=== PATIENT | female | born 1940 | race Caucasian/White ===

== ENCOUNTER 2018-09-25 08:19 | Day surgery (SDC) | payer OTHER ==
--- OUTSIDE RECORDS SUMMARY | 2018-09-25 08:21 | XMS REPORT ---
:1940 Author Organization eClinicalWorks Care Team Providers Name Role Phone Mitchell, Na Provider Role Unavailable Allergies, Adverse Reactions, Alerts Substance Reaction Event Type Sulfa Info Not Available Drug Allergy Problems Problem Type Condition Code Onset Dates Condition Status Assessment Other osteoporosis M81.8 Active Problem Family history of diabetes mellitus Z83.3 Active Assessment Renal insufficiency N28.9 Active Problem Hormone replacement therapy Z79.890 Active Assessment Hormone replacement therapy Z79.890 Active Problem Elevated blood pressure reading in R03.0 Active office without diagnosis of hypertension Problem Allergic rhinitis J30.9 Active Problem Hypertriglyceridemia E78.1 Active Problem Bronchiectasis without complication J47.9 Active Problem UTI (urinary tract infection) N39.0 Active Assessment Allergic rhinitis J30.9 Active Assessment Bronchiectasis without complication J47.9 Active Problem Abnormal mammogram R92.8 Active Assessment Gastro-esophageal reflux disease K21.9 Active without esophagitis Problem Encounter for screening mammogram Z12.31 Active for breast cancer Problem Renal insufficiency N28.9 Active Problem Microscopic polyangiitis M31.7 Active Problem Microscopic hematuria R31.29 Active Problem CKD (chronic kidney disease) stage N18.2 Active 2, GFR 60-89 ml/min Problem Other osteoporosis M81.8 Active Assessment Hypertriglyceridemia E78.1 Active Problem Dry mouth R68.2 Active Problem Gastro-esophageal reflux disease K21.9 Active without esophagitis Problem Dry eye syndrome H04.129 Active Problem Sjogren's syndrome M35.00 Active Medications Medication Code Code Instructions Start End Status Dosage System Date Date Prilosec [facility] 12094268936 20 MG Orally Active 1 capsule Once a day Fluticasone [facility] 49442285672 50MCG Active USE 2 Propionate INHALATIONS IN EACH NOSTRIL ONCE DAILY Flonase ND 04370107954 50 MCG/DOSE Active 1 spray in Nasally Once a each nostril day Aspirin ND 96329433841 325 MG Orally Active 1 tablet Once a day Premarin ND 44271936008 0.3 MG Orally Active 1 tablet one tablet daily Reclast [facility] 58710215236 5 MG/100ML Active not defined Intravenous Results No Known Results Summary Purpose eClinicalWorks Submission
--- OUTSIDE RECORDS SUMMARY | 2018-09-25 08:21 | XMS REPORT ---
:1940 Author Organization eClinicalWorks Care Team Providers Name Role Phone Mitchell, Na Provider Role Unavailable Allergies No Known Allergies Problems Problem Type Condition Code Onset Dates Condition Status Problem Elevated blood pressure reading in R03.0 Active office without diagnosis of hypertension Problem Allergic rhinitis J30.9 Active Problem Hypertriglyceridemia E78.1 Active Problem Bronchiectasis without complication J47.9 Active Problem UTI (urinary tract infection) N39.0 Active Problem Abnormal mammogram R92.8 Active Problem Encounter for screening mammogram Z12.31 Active for breast cancer Problem Renal insufficiency N28.9 Active Problem Microscopic polyangiitis M31.7 Active Problem Microscopic hematuria R31.29 Active Problem CKD (chronic kidney disease) stage N18.2 Active 2, GFR 60-89 ml/min Problem Other osteoporosis M81.8 Active Problem Dry mouth R68.2 Active Problem Gastro-esophageal reflux disease K21.9 Active without esophagitis Problem Dry eye syndrome H04.129 Active Problem Family history of diabetes mellitus Z83.3 Active Problem Sjogren's syndrome M35.00 Active Problem Hormone replacement therapy Z79.890 Active Medications No Known Medications Results No Known Results Summary Purpose eClinicalWorks Submission
--- OUTSIDE RECORDS SUMMARY | 2018-09-25 08:21 | XMS REPORT ---
[...] Start End Status Dosage System Date Date Keflex [facility] 40007184716 500 MG Orally Inactive 1 capsule every 12 hrs Fluticasone [facility] 81939891135 50MCG Active USE 2 Propionate INHALATIONS IN EACH NOSTRIL ONCE DAILY Flonase ND 37449306891 50 MCG/DOSE Active 1 spray in Nasally Once a each nostril day Reclast ND 99761585551 5 MG/100ML Active not defined Intravenous Prilosec [facility] 75874289096 20 MG Orally Active 1 capsule Once a day Premarin [facility] 75665214081 0.3 MG Orally Active 1 tablet one tablet daily Aspirin [facility] 21882889085 325 MG Orally Active 1 tablet Once a day Results No Known Results Summary Purpose eClinicalWorks Submission
--- OUTSIDE RECORDS SUMMARY | 2018-09-25 08:21 | XMS REPORT ---
[...] ml/min Problem Other osteoporosis M81.8 Active Assessment Abnormal mammogram R92.8 Active Problem Dry mouth R68.2 Active Problem Gastro-esophageal reflux disease K21.9 Active without esophagitis Problem Dry eye syndrome H04.129 Active Problem Family history of diabetes mellitus Z83.3 Active Problem Sjogren's syndrome M35.00 Active Problem Hormone replacement therapy Z79.890 Active Medications No Known Medications Results No Known Results Summary Purpose eClinicalWorks Submission
--- OUTSIDE RECORDS SUMMARY | 2018-09-25 08:22 | XMS REPORT ---
[...] ml/min Problem Other osteoporosis M81.8 Active Assessment Encounter for screening mammogram Z12.31 Active for breast cancer Problem Dry mouth R68.2 Active Problem Gastro-esophageal reflux disease K21.9 Active without esophagitis Problem Dry eye syndrome H04.129 Active Problem Family history of diabetes mellitus Z83.3 Active Problem Sjogren's syndrome M35.00 Active Problem Hormone replacement therapy Z79.890 Active Medications No Known Medications Results No Known Results Summary Purpose eClinicalWorks Submission
--- OUTSIDE RECORDS SUMMARY | 2018-09-25 08:22 | XMS REPORT ---
[...] UTI (urinary tract infection) N39.0 Active Assessment Hypertriglyceridemia E78.1 Active Assessment Allergic rhinitis J30.9 Active Problem Abnormal mammogram R92.8 Active Assessment Gastro-esophageal reflux disease K21.9 Active without esophagitis Problem Encounter for screening mammogram Z12.31 Active for breast cancer Problem Renal insufficiency N28.9 Active Problem Microscopic polyangiitis M31.7 Active Problem Microscopic hematuria R31.29 Active Problem CKD (chronic kidney disease) stage N18.2 Active 2, GFR 60-89 ml/min Problem Other osteoporosis M81.8 Active Assessment Encounter for general adult medical Z00.00 Active examination without abnormal findings Problem Dry mouth R68.2 Active Problem Gastro-esophageal reflux disease K21.9 Active without esophagitis Problem Dry eye syndrome H04.129 Active Problem Sjogren's syndrome M35.00 Active Medications Medication Code Code Instructions Start End Status Dosage System Date Date Reclast [facility][NOTE 3] 02861755353 5 MG/100ML Active not defined Intravenous Flonase [facility][NOTE 3] 96763305684 50 MCG/DOSE Active 1 spray in Nasally Once a each nostril day Fluticasone ND 82370898113 50MCG Active USE 2 Propionate INHALATIONS IN EACH NOSTRIL ONCE DAILY Premarin ND 08615094857 0.3 MG Orally Active 1 tablet one tablet daily Aspirin ND 17742634982 325 MG Orally Active 1 tablet Once a day Prilosec [facility][NOTE 3] 27750923787 20 MG Orally Active 1 capsule Once a day Results No Known Results Summary Purpose eClinicalWorks Submission
[2018-09-25] MEDS ORDERED: Zoledronic Acid/Mannitol/Water 5 MG/100 ML INFUS.BOT IV ONE (09:00)
[2018-09-25 09:13] VITALS: BP 154/64; TEMP 97.5; O2SAT 98; BMI 24.7
== END 2018-09-25 09:28 | disposition home or self-care (01) ==
LOC: DS 08:19
PROVIDERS: ATTEND Family Medicine
DX: M81.8 Other osteoporosis without current pathological fracture (principal)
CPT/HCPCS: 96365; J3489

== ENCOUNTER → 2019-09-27 | Day surgery (SDC) | payer OTHER ==
[~2019-09-27] MED LIST: Zoledronic Acid/Mannitol/Water 5 MG/100 ML INFUS.BOT IV ONE
--- OUTSIDE RECORDS SUMMARY | 2019-09-27 08:06 | XMS REPORT | Continuity of Care Document ---
:1940 Author Organization [facility] t Address [address] [place] [address] Care Team Providers Name Role Phone Elena Myers OD Attending Clinician Problems Condition Condition Condition Status Onset Resolution Last Treating Co mments Source Name Details Category Date Date Treatment Clinician Date Elevated Elevated Problem [facility] pressure pressure Memori a reading in reading in l office office Outpati without without ent diagnosis diagnosis Clin ics of of hypertensi hypertensi on on Allergic Allergic Diagnosis Active [facility] rhinitis rhinitis [facility] Hypertrigl Hypertrigl Diagnosis Active [facility] yceridemia yceridemia [facility] - [facility] Out[facility] ent Clinics Bronchiect Bronchiect Problem Active [facility] asis asis [facility] - without without Memoria complicati complicati l on on Outpati ent Clinics UTI UTI Problem Active [facility] (urinary (urinary [facility] - tract tract Memoria infection) infection) l Outpati ent Clinics Abnormal Abnormal Problem [facility] mamm[facility] mamm[facility] Encounter Encounter Problem Active [facility] for for [facility] - screening screening B[facility] sarah mammogram mammogram l for breast for breast Ou tpati cancer cancer ent Clinics Renal Renal Problem Active [facility] insufficie insufficie Leydi kes - ncy ncy [facility]oria l Outpati ent Clinics Microscopi Microscopi Problem Active [facility] - polyangiit polyangiit Me moria is is l Outpati ent Clinics Microscopi Microscopi Problem Active [facility] - hematuria hematuria Bg sarah l Outpati ent Clinics CKD CKD Problem Active [facility] (chronic (chronic [facility] - kidney kidney Memoria disease) disease) l stage 2, stage 2, Outpat i GFR 60-89 GFR 60-89 ent ml/min ml/min Clinics Other Other Problem Active [facility] osteoporos osteoporos Leydi kes - is is Memoria l [facility] ent Clinics Dry mouth Dry mouth Problem Active [facility] Gastro-eso Gastro-eso Problem Active [facility] phageal phageal [facility] - reflux reflux [facility] disease disease [facility]ics Dry eye Dry eye Problem Active [facility] syndrome syndrome [facility] Family Family Problem Active [facility] history of history of Leydi kes - diabetes diabetes Memori a mellitus mellitus l [facility]ics Sjogren's Sjogren's Problem Active [facility] syndrome syndrome [facility] Hormone Hormone Problem Active [facility] replacemen replacemen Leydi kes - t therapy t therapy Bg sarah l [facility]ics Screening Screening Diagnosis Active [facility] for for [facility] - osteoporos osteoporos Me moria is is l [facility]ics Screening Screening Diagnosis Active [facility] for for [facility] - malignant malignant Bg sarah neoplasm neoplasm l of breast of breast Outp at ent Clinics Allergies, Adverse Reactions, Alerts Allergy Allergy Status Severity Reaction(s) Onset Inactive Treating Comm ents Source Name Type Date Date Clinician Sulfa Adverse Active Info Not [facility] Reaction Available [facility] Medications Ordered Filled Start Stop Current Ordering Indication Dosage Frequency Signature Comments Components Source Medication Medication Date Date Medication? Clinician (SIG) Name Name Fluticasone Fluticasone Yes Na Mitchell USE [address] [facility] Propionate Propionate INHALATION [facility] - S IN EACH Memoria NOSTRIL l ONCE DAILY [facility] Flonase Flonase Yes Na Mitchell [address] [facility] each [facility] - nostril Memoria l [facility] Reclast Reclast Yes Na Mitchell not [facility] defined [facility] Prilosec Prilosec Yes Na Mitchell [address] [facility] Premarin Premarin Yes Na Mitchell [address] [facility] Aspirin Aspirin Yes Na Mitchell [address] [facility] Premarin Premarin Yes Na Mitchell TAKE [address] TABLET [facility] - DAILY [facility] l Outpati ent Clinics Fluticasone Fluticasone Yes Na Mitchell USE [address] [facility] [facility] Propionate Propionate SPRAYS IN [facility] - EACH Memoria NOSTRIL l ONCE DAILY Outpati ent Clinics Procedures This patient has no known procedures. Encounters Start End Encounter Admission Attending Care Care Encounter Source Date/Time Date/Time Type Type Clinicians Facility Department ID 2019-08-19 2019-08-19 Outpatient Ofelia Dye [id number] [facility] 08:00:00 08:00:00 [employer] [facility] Medicine Outpati ent Clinics 2019-07-28 2019-07-28 Outpatient Ofelia Gilbertt [id number] 14:02:00 14:02:00 [employer] [facility] Medicine Outpati ent Clinics 2019-04-20 2019-04-20 Outpatient Ofelia Dye [id number] [facility] 08:00:00 08:00:00 t [employer] [facility] Medicine Outpati ent Clinics 2019-04-13 2019-04-13 [place] [id number] 13:42:22 15:37:56 Visit [facility] AMBULATOR [id number] Elena Y [id number] 2019-03-22 2019-03-22 [place] [id number] 14:10:38 15:17:05 Visit [place] AMBULATOR [id number] Elena Y [id number] 2018-12-22 2018-12-22 Outpatient Ofelia Gilbertt [id number] [facility] 13:20:00 13:20:00 t [employer] [facility] Medicine Outpati ent Clinics 2018-09-07 2018-09-07 Outpatient Ofelia Gilbertt [id number] 11:42:00 11:42:00 t [employer] [facility] Outpati ent Clinics 2018-06-04 2018-06-04 [facility] [id number] [facility] 08:20:00 08:20:00 t [employer] [facility] Medicine Outpati ent Clinics 2018-02-02 2018-02-02 [facility] [id number] 08:15:00 08:15:00 t [employer] [facility] Medicine Outpati ent Clinics 2017-10-17 2017-10-17 [facility] [id number] 08:05:00 08:05:00 t [employer] [facility] Medicine Outpati ent Clinics 2017-10-04 2017-10-04 [facility] [id number] 00:21:00 00:21:00 t [employer] [facility] Medicine Outpati ent Clinics 2017-10-02 2017-10-02 [facility] [id number] [facility] 08:15:00 08:15:00 t [employer] [facility] Medicine Outpati ent Clinics Results This patient has no known results.
--- OUTSIDE RECORDS SUMMARY | 2019-09-27 08:07 | XMS REPORT ---
:1940 Author Organization eClinicalWorks Care Team Providers Name Role Phone Mitchell, Na Provider Role Unavailable Allergies No Known Allergies Problems Problem Type Condition Code Onset Dates Condition Statu s Assessment Screening for osteoporosis Z13.820 A ctive Assessment Screening for malignant neoplasm of Z12.39 Active breast Problem Family history of diabetes mellitus Z83.3 Active Assessment Hormone replacement therapy Z79.890 Active Problem Hormone replacement therapy Z79.890 Active Assessment Renal insufficiency N28.9 Active Problem Elevated blood pressure reading in R03.0 Active office without diagnosis of hypertension Problem Allergic rhinitis J30.9 Active Problem Hypertriglyceridemia E78.1 Active Problem Bronchiectasis without complication J47.9 Active Problem UTI (urinary tract infection) N39.0 Active Assessment Other osteoporosis M81.8 Active Assessment Allergic rhinitis J30.9 Active Problem Abnormal mammogram R92.8 Active Assessment Gastro-esophageal reflux disease K21.9 Active without esophagitis Problem Encounter for screening mammogram Z12.31 Active for breast cancer Problem Renal insufficiency N28.9 Active Problem Microscopic polyangiitis M31.7 Act nataliia Problem Microscopic hematuria R31.29 Active Problem CKD (chronic kidney disease) stage N18.2 Active 2, GFR 60-89 ml/min Problem Other osteoporosis M81.8 Active Assessment Hypertriglyceridemia E78.1 Active Problem Dry mouth R68.2 Active Problem Gastro-esophageal reflux disease K21.9 Active without esophagitis Problem Dry eye syndrome H04.129 Active Problem Sjogren's syndrome M35.00 Active Medications Medication Code Code Instructions Start End Status Dosage System Date Date Aspirin ND 93533200424 325 MG Orally Active 1 tabl et Once a day Prilosec [facility] 99367726441 20 MG Orally Active 1 caps ule Once a day Flonase ND 79357792682 50 MCG/DOSE Active 1 spray in Nasally Once a each nost ril day Premarin ND 98982188886 0.3 MG Active TAKE 1 TABL ET DAILY Reclast ND 30380950471 5 MG/100ML Active not defin ed Intravenous Fluticasone [facility] 88458029369 50MCG Active USE 2 Propionate INHALATIONS IN EACH NOSTRIL ONCE DAILY Premarin [facility] 82246238530 0.3 MG Orally Active 1 tab let one tablet daily Fluticasone [facility] 11231437777 50 MCG/ACT Active USE 2 SPRAYS Propionate IN EACH NOSTRIL ONCE DAILY Results No Known Results Summary Purpose eClinicalWorks Submission
--- OUTSIDE RECORDS SUMMARY | 2019-09-27 08:07 | XMS REPORT ---
:1940 Author Organization eClinicalWorks Care Team Providers Name Role Phone Mitchell, Na Provider Role Unavailable Allergies No Known Allergies Problems Problem Type Condition Code Onset Dates Condition Statu s Problem Elevated blood pressure reading in R03.0 [...]
[2019-09-27 09:34] VITALS: BP 142/60; TEMP 98; O2SAT 97
[2019-09-27 09:35] VITALS: BMI 24.7
== END ==
LOC: DS 08:03
PROVIDERS: ATTEND Family Medicine
DX: M81.8 Other osteoporosis without current pathological fracture (principal)
CPT/HCPCS: 96365; J3489

== ENCOUNTER 2020-10-06 08:35 | Day surgery (SDC) | payer OTHER ==
[2020-10-06] MEDS ORDERED: Zoledronic Acid/Mannitol/Water 5 MG/100 ML INFUS.BOT IV ONE (09:00)
[2020-10-06 09:59] VITALS: BP 142/60; TEMP 98; O2SAT 94; BMI 21.2
== END 2020-10-06 09:46 | disposition home or self-care (01) ==
LOC: DS 08:35
PROVIDERS: ATTEND Family Medicine
DX: M81.8 Other osteoporosis without current pathological fracture (principal)
CPT/HCPCS: 96365; J3489

== ENCOUNTER 2021-02-27 09:25 | Emergency (ER) | payer OTHER ==
--- OUTSIDE RECORDS SUMMARY | 2021-02-27 09:40 | XMS REPORT | Continuity of Care Document ---
:1940 Author Organization [facility] t Address [address] [place] [address] Care Team Providers Name Role Phone ASHLEY Attending Clinician Unavailable Abuhmahin OD, Elena Attending Clinician Payers Payer Name Policy Type Policy Number Effective Date Expiration Date [facility] MEDICARE PLAN PPO - [id number] [facility] [facility] MEDICARE [id number] [facility] MEDIC[facility] [id number] [facility] Problems Condition Condition Condition Status Onset Resolution Last Treating Co mments Source Name Details Category Date Date Treatment Clinician Date Dry eye Dry eye Disease Active [facility] 815 College 00:00: of 00 Medicin e Keratoconj Keratoconj Disease Active [facility] unctivitis unctivitis 10-08 Co llege sicca due sicca due 00:00: of to to 00 Medicin decreased decreased e tear tear production production Allergies, Adverse Reactions, Alerts Allergy Allergy Status Severity Reaction(s) Onset Inactive Treating Comm ents Source Name Type Date Date Clinician Sulfa Propensi Active 2018-[address] [facility] Antibiot ty to 03-14 [place] ics adverse 00:00: of reaction 00 Medicin s to e drug Sulfa Adverse Active Info Not [facility] Reaction Available [facility] Social History Social Habit Start Date Stop Date Quantity Comments Source Sex Assigned At [facility] llege of Medicine Tobacco use and 2019-02-25 2019-02-25 Never [address] [facility] Co llege of exposure 00:00:00 00:00:00 Medicine Alcohol intake 2019-02-25 2019-02-[address] [facility] Col lege of 00:00:00 00:00:00 Medicine Smoking Status Start Date Stop Date Source Never smoker [facility] o f Medicine Medications Ordered Filled Start Stop Current Ordering Indication Dosage Frequency Signature Comments Components Source Medication Medication Date Date Medication? Clinician (SIG) Name Name [place]-3 2018-02 Yes Take by [facility] Fatty Acids 1-19 mouth. Colleg e (FISH OIL) 19:13: of 1000 MG 31 Medicin CAPS e Polyvinyl 2018-02 Yes Apply to [place] juan antonio Alcohol-Pov 1-19 eye. [place] idone 19:13: of (REFRESH 31 Medicin OP) e [place]-3 2018-02 Yes Take by [facility] Fatty Acids 1-19 mouth. Colleg e (FISH OIL) 19:13: of 1000 MG 31 Medicin CAPS e Polyvinyl 2018-02 Yes Apply to [place] juan antonio Alcohol-Pov 1-19 eye. [place] idone 19:13: of (REFRESH 31 Medicin OP) e [place]-3 2018-02 Yes Take by [facility] Fatty Acids 1-19 mouth. Colleg e (FISH OIL) 19:13: of 1000 MG 31 Medicin CAPS e Polyvinyl 2018-02 Yes Apply to [place] juan antonio Alcohol-Pov 1-19 eye. [place] idone 19:13: of (REFRESH 31 Medicin OP) e XIIDRA 5 % 2018-02 Yes INSTILL 1 [facility] SOLN 1-01 DROP INTO College 00:00: EACH EYE of 00 TWICE Medicin DAILY e XIIDRA 5 % 2018-02 Yes INSTILL 1 [facility] SOLN 1-01 DROP INTO College 00:00: EACH EYE of 00 TWICE Medicin DAILY e XIIDRA 5 % 2018-02 Yes INSTILL 1 [facility] SOLN 1-01 DROP INTO College 00:00: EACH EYE of 00 TWICE Medicin DAILY e Dorzolamide Yes INSTILL 1 [facility] HCl-Timolol 8-30 DROP INTO Col lege Mal PF 00:00: EACH EYE of 2-0.5 % 00 TWICE Medicin SOLN DAILY e Dorzolamide Yes INSTILL 1 [facility] HCl-Timolol 8-30 DROP INTO Col lege Mal PF 00:00: EACH EYE of 2-0.5 % 00 TWICE Medicin SOLN DAILY e Dorzolamide 2018-0 Yes INSTILL 1 [facility] HCl-Timolol 8-30 DROP INTO Col lege Mal PF 00:00: EACH EYE of 2-0.5 % 00 TWICE Medicin SOLN DAILY e ondansetron 2016-02 Yes Q6H PRN [place] juan antonio (ZOFRAN-ODT 2-08 For Nausea Co llege ) 4 mg 00:00: / Vomiting of disintegrat 00 Medicin ing tablet e tramadol 2016-02 Yes Q6H PRN [facility] (ULTRAM) 50 2-08 For Pain Anjana ege MG tablet 00:00: of 00 Medicin e ondansetron 2016-02 Yes Q6H PRN [place] juan antonio (ZOFRAN-ODT 2-08 For Nausea Co llege ) 4 mg 00:00: / Vomiting of disintegrat 00 Medicin ing tablet e tramadol 2016-02 Yes Q6H PRN [facility] (ULTRAM) 50 2-08 For Pain Anjana ege MG tablet 00:00: of 00 Medicin e ondansetron 2016-02 Yes Q6H PRN [place] juan antonio (ZOFRAN-ODT 2-08 For Nausea Co llege ) 4 mg 00:00: / Vomiting of disintegrat 00 Medicin ing tablet e tramadol 2016-02 Yes Q6H PRN [facility] (ULTRAM) 50 2-08 For Pain Anjana ege MG tablet 00:00: of 00 Medicin e doxycycline Yes [id number] 20mg Take 1 Tab Jay (PERIOSTAT) 8-15 by mouth Anjana ege 20 MG 00:00: two times of tablet 00 daily. Medicin e doxycycline Yes [id number] 20mg Take [address] [facility] (PERIOSTAT) 8-15 by mouth Anjana ege 20 MG 00:00: two times of tablet 00 daily. Medicin e doxycycline Yes [id number] 20mg Take [address] [facility] (PERIOSTAT) 8-15 by mouth Anjana ege 20 MG 00:00: two times of tablet 00 daily. Medicin e Fluticasone Fluticasone Yes [place] USE [address] [facility] Propionate Propionate INHALATION [facility] Flonase Flonase Yes Na [place] [address] [facility] Reclast Reclast Yes Na [facility] not [facility] defined [facility] Prilosec Prilosec Yes Na [facility] [address] [facility] Premarin Premarin Yes Na Mitchell [address] [facility] Aspirin Aspirin Yes Na [place] [...] Procedures This patient has no known procedures. Plan of Care Planned Activity Planned Date Details Comments Source Future Scheduled Test MEDICARE AWV (Initial) [facility] [code = MEDICARE AWV Medicin e (Initial)] Future Scheduled Test FLU VACCINE > 6 MONTHS [facility] [code = FLU VACCINE > 6 Medi cine MONTHS] Future Scheduled Test MEDICARE AWV [code = [employer] MEDICARE AWV] Medicine Future Scheduled Test TETANUS SHOT (ADULT) [facility] [code = TETANUS SHOT Medicin e (ADULT)] Future Scheduled Test FALL SCREEN [code = [facility] FALL SCREEN] Medicine Future Scheduled Test OSTEOPOROSIS SCREENING [facility] [code = OSTEOPOROSIS Medicin e SCREENING] Future Scheduled Test PNEUMOVAX >=65 (PPSV23) [facility] [code = PNEUMOVAX >=65 Medic ine (PPSV23)] Future Scheduled Test PREVNAR >= 65 (PCV13) [facility] [code = PREVNAR >= 65 Medici ne (PCV13)] Future Scheduled Test MEDICARE AWV (Initial) [facility] [code = MEDICARE AWV Medicin e (Initial)] Future Scheduled Test FLU VACCINE > 6 MONTHS [facility] [code = FLU VACCINE > 6 Medi cine MONTHS] Future Scheduled Test TETANUS SHOT (ADULT) [facility] [code = TETANUS SHOT Medicin e (ADULT)] Future Scheduled Test FALL SCREEN [code = [facility] FALL SCREEN] Medicine Future Scheduled Test OSTEOPOROSIS SCREENING [facility] [code = OSTEOPOROSIS Medicin e SCREENING] Future Scheduled Test PNEUMOVAX >=65 (PPSV23) [facility] [code = PNEUMOVAX >=65 Medic ine (PPSV23)] Future Scheduled Test PREVNAR >= 65 (PCV13) [facility] [code = PREVNAR >= 65 Medici ne (PCV13)] Future Scheduled Test MEDICARE AWV (Initial) [facility] [code = MEDICARE AWV Medicin e (Initial)] Future Scheduled Test FLU VACCINE > 6 MONTHS [facility] [code = FLU VACCINE > 6 Medi cine MONTHS] Future Scheduled Test TETANUS SHOT (ADULT) [facility] [code = TETANUS SHOT Medicin e (ADULT)] Future Scheduled Test ZOSTER VACCINE (1 of 2) [facility] [code = ZOSTER VACCINE Medic ine (1 of 2)] Future Scheduled Test FALL SCREEN [code = [facility] FALL SCREEN] Medicine Future Scheduled Test OSTEOPOROSIS SCREENING [facility] [code = OSTEOPOROSIS Medicin e SCREENING] Future Scheduled Test PNEUMOVAX >=65 (PPSV23) [facility] [code = PNEUMOVAX >=65 Medic ine (PPSV23)] Encounters Start End Encounter Admission Attending Care Care Encounter Source Date/Time Date/Time Type Type Clinicians Facility Department ID 2020-11-24 2020-11-24 Outpatient GARCIA RAMIREZ [facility] [id number] [facility] 13:40:35 14:25:43 KELSI Zambrano e of Medicin e 2020-09-29 2020-09-29 Outpatient [facility] [id number] NIKI Gaspar 00:00:00 00:00:00 [facility] 2020-09-07 2020-09-07 [facility] [id number] NIKI Gaspar 00:00:00 00:00:00 [facility] 2020-08-30 2020-08-30 [facility] [id number] NIKI Gaspar 00:00:00 00:00:00 [facility] 2020-04-28 2020-04-28 Outpatient [facility] [id number] NIKI Gaspar 00:00:00 00:00:00 [facility] 2020-01-28 2020-01-28 Outpatient [facility] [id number] [facility]00 [facility] 2019-12-30 2019-12-30 [facility] [id number] [facility]00 [facility] 2019-10-31 2019-10-31 [facility] [id number] 10:37:00 10:37:00 [place] [employer] Being [employer]ched s - [facility] 2019-10-12 2019-10-12 Office Abarb, [facility] [id number] 10:16:39 11:08:05 Visit [place] AMBULATOR [id number] Elena Y [id number] [facility] 2019-10-12 2019-10-12 [facility] [id number] [facility] 10:16:39 11:08:05 Visit Victoria AMBULATOR [id number] [place] Elena Y [id number] of [id number] Medi nati 300 e 2019-08-19 2019-08-19 [facility] [id number] 08:00:00 08:00:00 [facility] Watched [facility] - [facility] 2019-07-28 2019-07-28 [facility] [id number] 14:02:00 14:02:00 [place] [employer] Stop Being Watched s - [facility] 2019-04-20 2019-04-20 [facility] [id number] 08:00:00 08:00:00 [place] [employer] Stop Being Watched s [facility] 2019-04-13 2019-04-13 Office Abarb, [facility] [id number] 13:42:22 15:37:56 Visit [place] AMBULATOR [id number] Elena Y [id number] 2019-04-13 2019-04-13 Office Abuharb, BCM [id number] [facility] 13:42:22 15:37:56 Visit [place] AMBULATOR [id number] College Elena Y [id number] of [id number] [facility] nati 300 e 2019-03-22 2019-03-22 Office Abuharb, BCM [id number] 14:10:38 15:17:05 Visit [place] AMBULATOR [id number] Elena Y [id number] 2019-03-22 2019-03-22 Office Abuharb, BCM [id number] [facility] 14:10:38 15:17:05 Visit [place] AMBULATOR [id number] College Elena Y [id number] of [id number] [facility] 300 e 2018-12-22 2018-12-22 [facility] [id number] 13:20:00 13:20:00 [place] [address] [facility] Medicine Outpati ent Clinics 2018-09-07 2018-09-07 [facility] [id number] 11:42:00 11:42:[address] [place] [address] [facility] - [facility] Medicine Outpati ent Clinics 2018-06-04 2018-06-04 [facility] [id number] [facility] [address] 08:20:00 08:20:00 [place] [address] [facility] - [facility] Medicine Outpati ent Clinics 2018-02-02 2018-02-02 [facility] [id number] 08:15:00 08:15:00 [place] [address] [facility] - [facility] Medicine Outpati ent Clinics 2017-10-17 2017-10-17 [facility] [id number] 08:05:00 08:05:00 [place] [address] [facility] - Drive [facility] Medicine l Medicine Outpati ent Clinics 2017-10-04 2017-10-04 [facility] [id number] 00:21:00 00:21:00 [facility] [place] ent [facility] 2017-10-02 2017-10-02 Outpatient [facility] [place] [id number] [facility] [address] 08:15:00 08:15:00 t [facility] ent Clinics Results This patient has no known results.
[2021-02-27] MEDS ORDERED: LEVALBUTEROL 1.25 MG/3 ML NEB ONE (10:04)
[2021-02-27] MEDS ORDERED: METHYLPREDNISOLONE 125 MG INJ ONE (10:04)
--- NOTE | 2021-02-27 10:49 | RAD REPORT ---
EXAM DESCRIPTION: Eduardo Single View02/27/2021 10:19 am CLINICAL HISTORY: Shortness of breath COMPARISON: 2018 FINDINGS: Lungs are hyperaerated. Chronic left basilar lung opacities noted. Old rib fractures seen. The lungs appear clear of acute infiltrate. The heart is normal size IMPRESSION: No acute abnormalities displayed
[2021-02-27 10:58] LABS: Absolute Lymphocytes (CBC) 1.2 K/uL (0.7-4.9); Hematocrit 38.2 % (36.0-45.0); Lymphocytes % 7.5 % (15.3-44.8); RBC Red Blood Cell Count 4.39 M/uL (3.86-4.86)
[2021-02-27 11:03] LABS: Protime INR 1.12
[2021-02-27 11:19] LABS: BUN Blood Urea Nitrogen 14 mg/dL (7-18); Bicarbonate 26 mmol/L (21-32); Glucose Level 114 mg/dL (74-106); NT PRO-BNP 876 pg/mL (<450); Potassium 3.3 mmol/L (3.5-5.1); Sodium Level 138 mmol/L (136-145); Troponin (Emerg Dept Use Only) < 0.02 ng/mL (0.0-0.045)
[2021-02-27 12:23] LABS: Blood Morphology Comment NOT SEEN (NOT SEEN); Platelet Estimate ADEQ; White Blood Cell Scan OK (OK)
--- NOTE | 2021-02-27 12:25 | RAD REPORT ---
EXAM DESCRIPTION: CT - Chest For Pe Angio - 02/27/2021 12:11 pm CLINICAL HISTORY: Chest pain COMPARISON: 2017 TECHNIQUE: Dynamically enhanced axial 3 mm thick images of the chest were obtained during administra tion of <100> mL Isovue 370 IV contrast. Coronal and oblique reconstruction images were generated and reviewed. Exam utilizes a protocol for optimal evaluation of pulmonary arterial tree. Maximum intensity projections 3D imaging was utilized All CT scans are performed using dose optimization technique as appropriate and may include automated exposure control or mA/KV adjustment according to patient size. FINDINGS: A pulmonary embolus is not seen. A thoracic aortic aneurysm is not noted. A pleural effusion is not seen. A pericardial effusion is not seen. The lungs are hyperaerated. Bilateral areas of scarring within the lungs noted. In addition there are mild tree-in-bud opacities within the lungs bilaterally. Mild additional left l su opacities Mild hilar lymphadenopathy Hepatic cyst IMPRESSION: Negative for a pulmonary embolism. COPD Mild bilateral tree-in-bud opacities may indicate an atypical infection. Mild additional left lung opacities probably infectious less likely neoplastic. Followup CT chest in 2 months is recommended for re-evaluation .
[2021-02-27 12:44] LABS: SARS-COV-2 RT PCR POSITIVE (NEGATIVE)
--- NOTE | 2021-02-27 13:59 | ER ---
Nurse's Notes [facility] Name: Bridget Zaidi Age: 80 yrs Sex: Female : 1940 Arrival Date: 02/27/2021 Time: 09:28 Bed 10 Private MD: Diagnosis: Pneumonia due to SARS-associated coronavirus Presentation: 02/27 09:55 Chief complaint: Patient states: Cough, congestion for 1 week. Pain with breathing for ll1 3 days. No fever. Coronavirus screen: Vaccine status: Patient reports receiving the 2nd dose of the covid vaccine. Client denies travel out of the [place] in the last 14 days. Client presents with at least one sign or symptom that may indicate coronavirus-19. Standard/surgical mask placed on the client. Ebola Screen: Patient denies travel to an Ebola-affected area in the 21 days before illness onset. 09:55 Method Of Arrival: Ambulatory ll1 09:59 Initial Sepsis Screen: Does the patient meet any 2 criteria? No. Patient's initial jd3 sepsis screen is negative. Does the patient have a suspected source of infection? No. Patient's initial sepsis screen is negative. Risk Assessment: Do you want to hurt yourself or someone else? Patient reports no desire to harm self or others. Onset of symptoms was February 27, 2021. 09:59 Acuity: ETHAN 3 jd3 Historical: - Allergies: 09:54 Sulfa (Sulfonamide Antibiotics); ll1 - PMHx: 09:54 Hypertensive disorder; COPD; ll1 - PSHx: 09:54 Tonsillectomy; hysterectomy; ll1 - Immunization history:: Client reports receiving the 2nd dose of the Covid vaccine. - Social history:: Smoking status: Patient denies any tobacco usage or history of. Patient uses. - Family history:: not pertinent. - Hospitalizations: : No recent hospitalization is reported. Screenin:57 Abuse screen: Denies threats or abuse. Nutritional screening: No deficits noted. jd3 Tuberculosis screening: No symptoms or risk factors identified. Fall Risk Ambulatory Aid- None/Bed Rest/Nurse Assist (0 pts). Gait- Normal/Bed Rest/Wheelchair (0 pts) Mental Status- Oriented to own ability (0 pts). Total Hays Fall Scale indicates No Risk (0-24 pts). Assessment: 09:58 General: Appears in no apparent distress. comfortable, Behavior is calm, cooperative, jd3 appropriate for age. Pain: Complains of pain in chest Pain does not radiate. Pain began gradually. Neuro: Level of Consciousness is awake, alert, obeys commands, Oriented to person, place, time, situation. Cardiovascular: Reports chest pain, Capillary refill < 3 seconds Patient's skin is warm and dry. Respiratory: Reports shortness of breath on exertion cough that is persistent Airway is patent Respiratory effort is even, unlabored, Respiratory pattern is regular, symmetrical. GI: No signs and/or symptoms were reported involving the gastrointestinal system. : No signs and/or symptoms were reported regarding the genitourinary system. EENT: No signs and/or symptoms were reported regarding the EENT system. Derm: Skin is intact, Skin is dry, Skin is normal, Skin temperature is warm. Musculoskeletal: Circulation, motion, and sensation intact. Range of motion: intact in all extremities. 11:16 Reassessment: Patient appears in no apparent distress at this time. No changes from jd3 previously documented assessment. Patient and/or family updated on plan of care and expected duration. Pain level reassessed. Patient is alert, oriented x 3, equal unlabored respirations, skin warm/dry/pink. 12:40 Reassessment: Patient appears in no apparent distress at this time. No changes from jd3 previously documented assessment. Patient and/or family updated on plan of care and expected duration. Pain level reassessed. Patient is alert, oriented x 3, equal unlabored respirations, skin warm/dry/pink. 14:31 Reassessment: Patient appears in no apparent distress at this time. Patient and/or jd3 family updated on plan of care and expected duration. Pain level reassessed. Patient is alert, oriented x 3, equal unlabored respirations, skin warm/dry/pink. even and steady gait upon discharge. no reports of shortness of breath or discomfort. Patient denies pain at this time. Patient states feeling better. Patient states symptoms have improved. Vital Signs: 09:55 BP 135 / 76; Pulse 87; Resp 17; Temp 98.0; Pulse Ox 92% on R/A; Weight 54.43 kg; Height ll1 5 ft. 3 in. (160.02 cm); Pain 5/10; 11:16 Pulse 85; Resp 17 S; Pulse Ox 94% on R/A; jd3 12:40 BP 143 / 62; Pulse 86; Resp 17 S; Pulse Ox 94% on R/A; jd3 13:27 BP 146 / 63; Pulse 78; Resp 17 S; Pulse Ox 96% on R/A; jd3 09:55 Body Mass Index 21.26 (54.43 kg, 160.02 cm) ll1 ED Course: 09:28 Patient arrived in ED. as 09:51 Juanpablo Denton MD is Attending Physician. rn 09:54 Arm band placed on Patient placed in an exam room, on a stretcher. ll1 09:57 Russ Pedro, WAGNER is Primary Nurse. jd3 09:59 Triage completed. jd3 09:59 Patient has correct armband on for positive identification. Bed in low position. Call jd3 light in reach. Side rails up X 1. monitoring and evaluation advisor on. Pulse ox on. NIBP on. 10:00 Patient maintains SpO2 saturation greater than 95% on room air. jd3 10:19 XRAY CXR (1 view) In Process Unspecified. EDMS 10:51 Inserted saline lock: 22 gauge in right wrist, using aseptic technique. Blood collected.jd3 12:02 Inserted saline lock: 22 gauge in left antecubital area, using aseptic technique. Blood jd3 collected. 12:02 Second set of blood cultures drawn. jd3 12:10 CT Chest For PE Angio In Process Unspecified. EDMS 14:29 No provider procedures requiring assistance completed. IV discontinued, intact, jd3 bleeding controlled, No redness/swelling at site. Pressure dressing applied. Administered Medications: 10:51 Drug: SOLU-Medrol (methylPrednisoLONE) 125 mg Route: IVP; Site: right wrist; jd3 11:50 Follow up: Response: No adverse reaction jd3 10:51 Drug: Xopenex (levalbuterol) 1.25 mg Route: Inhalation; jd3 11:50 Follow up: Response: No adverse reaction jd3 Outcome: 13:58 Discharge ordered by . rn 14:30 Discharged to home ambulatory, with family. jd3 14:30 Condition: stable 14:30 Discharge instructions given to patient, family, Instructed on discharge instructions, follow up and referral plans. medication usage, Demonstrated understanding of instructions, follow-up care, medications, Prescriptions given X 2. 14:36 Patient left the ED. jd3 Signatures: Dispatcher [employer] Little Huerta Roman, MD MD rn Davies, Jonathon, RN RN jd3 Demarco Delacruz RN RN ll1 Corrections: (The following items were deleted from the chart) 09:55 09:54 PSHx: hysterectomy; ll1 ll1 12:42 12:40 BP 134 / 75; Pulse 86bpm; Resp 17bpm; Spontaneous; Pulse Ox 94% RA; jd3 jd3 14:34 14:31 Reassessment: Patient appears in no apparent distress at this time. Patient jd3 and/or family updated on plan of care and expected duration. Pain level reassessed. Patient is alert, oriented x 3, equal unlabored respirations, skin warm/dry/pink. even and steady gait upon discharge. no reports of shortness of breath or discomfort. Patient denies pain at this time. Patient states feeling better. Patient states symptoms have improved. jd3
--- NOTE | 2021-02-27 13:59 | EDPHYS ---
Physician Documentation [facility] Name: Bridget Zaidi Age: 80 yrs Sex: Female : 1940 Arrival Date: 02/27/2021 Time: 09:28 Bed 10 Private MD: ED Physician Juanpablo Denton HPI: 02/27 10:00 This 80 yrs old Female presents to ER via Ambulatory with complaints of Chest Pain, rn Cough, Breathing Difficulty. 10:00 The patient or guardian reports chest pain that is located primarily in the anterior rn chest wall, left. Onset: 1 week(s) ago. The pain does not radiate. Associated signs and symptoms: Pertinent positives: cough, shortness of breath, Pertinent negatives: diaphoresis, lower extremity pain, lower extremity swelling, near syncope. The chest pain is described as sharp, stabbing. Duration: The patient or guardian reports multiple episodes, that are intermittent. Modifying factors: The symptoms are alleviated by nothing. Severity of pain: At its worst the pain was mild in the emergency department the pain is unchanged. The patient has not experienced similar symptoms in the past. The patient has not recently seen a physician. Patient reports cough and left-sided chest pain that began 1 week ago. Reports has been was ill and gave it to her. was tested and negative for Covid. Denies hemoptysis. Reports has COPD. States the cough and the pain is what brought her in and she was open to get antibiotics since her is improving on antibiotics. No history of DVT or PE.. Historical: - Allergies: 09:54 Sulfa (Sulfonamide Antibiotics); ll1 - PMHx: 09:54 Hypertensive disorder; COPD; ll1 - PSHx: 09:54 Tonsillectomy; hysterectomy; ll1 - Immunization history:: Client reports receiving the 2nd dose of the Covid vaccine. - Social history:: Smoking status: Patient denies any tobacco usage or history of. Patient uses. - Family history:: not pertinent. - Hospitalizations: : No recent hospitalization is reported. ROS: 10:00 Constitutional: Negative for fever, chills, and weight loss, Eyes: Negative for injury, rn pain, redness, and discharge, Neck: Negative for injury, pain, and swelling, Cardiovascular: Positive for left-sided chest pain Respiratory: Positive for cough Abdomen/GI: Negative for abdominal pain, nausea, vomiting, diarrhea, and constipation, MS/Extremity: Negative for injury and deformity, Skin: Negative for injury, rash, and discoloration, Neuro: Negative for headache, weakness, numbness, tingling, and seizure. 10:00 All other systems are negative. Exam: 10:00 Constitutional: This is a well developed, well nourished patient who is awake, alert, rn and in no acute distress. Head/Face: Normocephalic, atraumatic. Eyes: Pupils equal round and reactive to light, extra-ocular motions intact. Lids and lashes normal. Conjunctiva and sclera are non-icteric and not injected. Cornea within normal limits. Periorbital areas with no swelling, redness, or edema. ENT: No stridor Cardiovascular: Regular rate and rhythm. No pulse deficits. Respiratory: Equal breath sounds bilaterally, faint end expiratory wheezing. No retractions Abdomen/GI: Soft, nontender Skin: Warm, dry MS/ Extremity: Pulses equal, no cyanosis. Neurovascular intact. Full, normal range of motion. Equal circumference. Neuro: Awake and alert, GCS 15 Vital Signs: 09:55 BP 135 / 76; Pulse 87; Resp 17; Temp 98.0; Pulse Ox 92% on R/A; Weight 54.43 kg; Height ll1 5 ft. 3 in. (160.02 cm); Pain 5/10; 11:16 Pulse 85; Resp 17 S; Pulse Ox 94% on R/A; jd3 12:40 BP 143 / 62; Pulse 86; Resp 17 S; Pulse Ox 94% on R/A; jd3 13:27 BP 146 / 63; Pulse 78; Resp 17 S; Pulse Ox 96% on R/A; jd3 09:55 Body Mass Index 21.26 (54.43 kg, 160.02 cm) ll1 MDM: 09:51 Patient medically screened. rn 13:55 Differential diagnosis: pericarditis, pleurisy, pneumonia, pulmonary embolus, COVID. rn Data reviewed: vital signs, nurses notes, lab test result(s), EKG, radiologic studies, CT scan, plain films, and as a result, I will discharge patient. Counseling: I had a detailed discussion with the patient and/or guardian regarding: the historical points, exam findings, and any diagnostic results supporting the discharge/admit diagnosis, lab results, radiology results, the need for outpatient follow up, to return to the emergency department if symptoms worsen or persist or if there are any questions or concerns that arise at home. Special discussion: I discussed with the patient/guardian in detail that at this point there is no indication for admission to the hospital. It is understood, however, that if the symptoms persist or worsen the patient needs to return immediately for re-evaluation. ED course: Oxygen 96%, no oxygen requirement, mild COVID pneumonia, will dc home with zithromax and steroids with return precautions.. 02/27 10:00 Order name: BMP rn 02/27 10:00 Order name: Blood Culture Adult (2) rn 02/27 10:00 Order name: CBC with Diff; Complete Time: 12:43 02/27 10:00 Order name: D-Dimer; Complete Time: 11:53 rn 02/27 10:00 Order name: NT PRO-BNP; Complete Time: 11:53 02/27 10:00 Order name: PT-INR; Complete Time: 11:53 02/27 10:00 Order name: Ptt, Activated; Complete Time: 11:53 02/27 10:00 Order name: Troponin (emerg Dept Use Only); Complete Time: 11:53 rn 02/27 10:00 Order name: XRAY CXR (1 view); Complete Time: 10: rn 02/27 10:00 Order name: COVID-19/FLU A+B (Document "Date of Onset" if Symptomatic); Complete Time: rn 13:17 02/27 10:00 Order name: Procalcitonin; Complete Time: 11:53 rn 02/27 10:00 Order name: Basic Metabolic Panel; Complete Time: 11:53 EDWA 02/27 10:00 Order name: Blood Culture EDWA 02/27 12:23 Order name: CBC Smear Scan; Complete Time: 12:43 EDWA 02/27 10:00 Order name: EKG; Complete Time: : rn 02/27 10:00 Order name: Cardiac monitoring; Complete Time: : rn 02/27 10:00 Order name: EKG - Nurse/Tech; Complete Time: 10: rn 02/27 10:00 Order name: IV Saline Lock; Complete Time: : rn 02/27 10:00 Order name: Labs collected and sent; Complete Time: 10:51 rn 02/27 10:00 Order name: O2 Per Protocol; Complete Time: 10:00 rn 02/27 10:00 Order name: O2 Sat Monitoring; Complete Time: 10:00 rn 02/27 11:07 Order name: CT Chest For PE Angio; Complete Time: 12:43 rn Administered Medications: 10:51 Drug: SOLU-Medrol (methylPrednisoLONE) 125 mg Route: IVP; Site: right wrist; jd3 11:50 Follow up: Response: No adverse reaction jd3 10:51 Drug: Xopenex (levalbuterol) 1.25 mg Route: Inhalation; jd3 11:50 Follow up: Response: No adverse reaction jd3 Disposition Summary: 02/27/21 13:58 Discharge Ordered Location: Home rn Problem: new rn Symptoms: have improved rn Condition: Stable rn Diagnosis - Pneumonia due to SARS-associated coronavirus rn Followup: rn - With: Private Physician - When: 2 - 3 days - Reason: Recheck today's complaints, Re-evaluation by your physician Discharge Instructions: - Discharge Summary Sheet rn - COVID-19 rn - COVID-19 Frequently Asked Questions rn - 10 Things You Can Do to Manage Your COVID-19 Symptoms at Home - [facility] rn Forms: - Medication Reconciliation Form rn - Thank You Letter rn - Antibiotic unit manager rn - Prescription Opioid Use rn Prescriptions: - Prednisone 20 mg Oral Tablet - take 1 tablet by ORAL route once daily for 5 days; 5 tablet; Refills: 0, rn Product Selection Permitted - Zithromax Z-Ambrosio 250 mg Oral Tablet - take 1 tablet by ORAL route as directed for 5 days Day 1 - take two (2) tablets rn one time. Day 2, 3, 4 , 5 take one (1) tablet once daily.; 6 tablet; Refills: 0, Product Selection Permitted Signatures: Dispatcher [employer] Juanpablo Woody MD MD rn Davies, Jonathon, RN RN Demarco Kimbrough RN RN ll1 Corrections: (The following items were deleted from the chart) 09:55 09:54 PSHx: hysterectomy; ll1 ll1
[2021-02-27 14:45] VITALS: TEMP 98
[2021-02-27 14:49] VITALS: BP 146/63; O2SAT 96
--- NOTE | 2021-02-28 11:26 | EKG ---
Test Date: 2021-02-27 Test Time: 10:17:34 [employer]: BELÉN MEASUREMENT RESULTS: Intervals: Rate: 91 MS: 152 QRSD: 80 QT: 344 QTc: 423 [place]: P: 86 MS: 152 QRS: 89 T: -61 INTERPRETIVE STATEMENTS: Normal sinus rhythm Biatrial enlargement Anterior infarct, age undetermined T wave abnormality, consider inferior ischemia Abnormal ECG Compared to ECG 01/28/2017 10:29:10 Atrial abnormality now present Myocardial infarct finding now present T-wave abnormality now present Possible ischemia now present Electronically Signed On 02-28-21 11:23:37 [employer]INT SUPPORT SPECIALIST by Pedrito Nicholas
== END 2021-02-27 14:36 | disposition home or self-care (01) ==
LOC: ER 09:25
DX: U07.1 COVID-19 (principal); J12.82 Pneumonia due to coronavirus disease 2019; J44.9 Chronic obstructive pulmonary disease, unspecified; I10 Essential (primary) hypertension; Z88.2 Allergy status to sulfonamides
CPT/HCPCS: 93005; 87040 ×2; 85025; 80048; 36415; 85610; 85379; 85730; 84484; 84145; 83880; 0240U; 71275; 71045; 96374; 99285; Q9967; J2930

== ENCOUNTER 2022-09-09 11:16 | Emergency (ER) | payer OTHER ==
[2022-09-09] MEDS ORDERED: NA CHLORIDE 0.9% 500 ML ONE (13:20)
[2022-09-09] MEDS ORDERED: CEFAZOLIN SODIUM 1 GM/VIAL ONE (14:13)
[2022-09-09] MEDS ORDERED: NA CHLORIDE 0.9% 100 ML ONE (14:14)
--- OUTSIDE RECORDS SUMMARY | 2022-09-09 14:35 | XMS REPORT | Continuity of Care Document ---
:1940 Author Organization [facility] t Address [address] [facility]. [address] [place] [address] Care Team Providers Name Role Phone Aime Alethea Attending Clinician Unavailable Ruby Mitchell Attending Clinician Unavailable Payers Payer Name Policy Type Policy Number Effective Date Expiration Date Fco gerard [facility] [employer] 1 [id number] 2020 Common TRS/ERS MCR PPO 00:00:00 [facility] Problems Condition Condition Condition Status Onset Resolution Last Treating Co mments Source Name Details Category Date Date Treatment Clinician Date [id number] Paresthesi Problem Com mon a of skin [facility] [id number] Anesthesia Problem Com mon of skin [facility] [id number] Right Problem Common anterior [facility] shoulder - [facility] pain [facility] [id number] Primary Problem Comm on osteoarthr Spirit itis of - [facility] right [facility] Sjogren's Sjogren's Problem Com mon syndrome syndrome [facility] Dry eye Dry eye Problem Common syndrome syndrome [facility] Gastro-eso Gastro-eso Problem C ommon phageal phageal Spirit reflux reflux - [facility] disease disease [facility] without [facility] esophagiti esophagiti [facility] Dry mouth Dry mouth Problem Com mon [facility] Hormone Hormone Problem Common replacemen replacemen Sp monet t therapy t therapy - CH I [facility] FH: Family Problem Common Diabetes history of Spir it mellitus diabetes - [facility] mellitus [facility] Hypertrigl Hypertrigl Problem C ommon yceridemia yceridemia Sp monet [facility] Allergic Allergic Problem Commo n rhinitis rhinitis [facility] [id number] Renal Problem Common insufficie [facility] ncy [facility] [id number] Encounter Problem Com mon for [facility] screening [facility] mammogram for breast [facility] cancer [facility] [id number] Microscopi Problem Co mmon c Spirit hematuria [facility] [id number] Essential Problem Comm on hypertensi Spirit on [facility] Osteoporos Other Problem Commo n is osteoporos [facility] is [facility] [id number] Primary Problem Common insomnia [facility] Elevated Elevated Problem Commo n blood blood [facility] pressure pressure [facility] reading reading in without office [facility] diagnosis without Medica l of diagnosis Center hypertensi of on hypertensi on [id number] CKD Problem Common (chronic [facility] kidney - [facility] disease) [facility] GFR 60-89 Medical ml/min [place] [id number] Microscopi Problem Co mmon c Spirit polyangiit - [facility] is [facility] Urinary UTI Problem Common tract (urinary Spirit infectious tract - [facility] disease infection) [facility] [id number] Bronchiect Problem Com mon asis [facility] without - [facility] complicati [facility] Abnormal Abnormal Problem Commo n mammogram mammogram Spir it [facility] Allergies, Adverse Reactions, Alerts Allergy Allergy Status Severity Reaction(s) Onset Inactive Treating Comm ents Source Name Type Date Date Clinician 0 Drug Active Unknown Common allergy [facility] Social History Social Habit Start Date Stop Date Quantity Comments Source History of Tobacco Use Co mmon [facility] Sex Assigned At Com mon [facility] Smoking Status Start Date Stop Date Source Former Smoker 2022-01-25 00:00:00 2022-01-25 00:00:00 Common S pirit [facility] Never Smoker Common [facility] Medications Ordered Filled Start Stop Current Ordering Indication Dosage Frequency Signature Comments Components Source Medication Medication Date Date Medication? Clinician (SIG) Name Name Methocarbam Methocarbam 2021-02- No 1{table Methocarba ol 500 MG ol 500 MG 03-28 t} mol 500 MG 00:00: 00:00 00 :00 Medrol 4 MG Medrol 4 MG 2021-02- No QD Medrol 4 03-28 MG 00:00: 00:00 00 :00 guaiFENesin guaiFENesin 2021- No 5{ml} QID guaiFENesi -Codeine -Codeine 09-11 n-Codeine 100-10 100-10 00:00: 00:00 100-10 MG/5ML MG/5ML 00 :00 MG/5ML guaiFENesin guaiFENesin 2021- No 5{ml} QID -Codeine -Codeine 03-05 100-10 100-10 00:00: 00:00 MG/5ML MG/5ML 00 :00 predniSONE predniSONE 2021- No QD 10 MG 10 MG 03-05 00:00: 00:00 00 :00 Augmentin Augmentin 2021- No 1{table BID 500-125 MG 500-125 MG 03-05 t} 00:00: 00:00 00 :00 Fluticasone Fluticasone Yes Na Mitchell USE 2 Common Propionate Propionate INHALATION Spirit S IN EACH [facility] NOSTRIL St ONCE DAILY [facility] Flonase Flonase Yes Na Mitchell 1 spray in Common each Spirit nostril [facility] Reclast Reclast Yes Na Mitchell not Common defined Spirit [facility] Prilosec Prilosec Yes Na Mitchell [address] [facility] Premarin Premarin Yes Na Mitchell 1 tablet Common Spirit [facility] Aspirin Aspirin Yes Na Mitchell 1 tablet Co mmon Spirit [facility] Premarin Premarin Yes Na Mitchell TAKE 1 Co mmon TABLET Spirit DAILY [facility] Fluticasone Fluticasone Yes Na Mitchell USE 2 Common Propionate Propionate SPRAYS IN Spirit EACH - [facility] NOSTRIL St ONCE DAILY [facility] Fluticasone Fluticasone No Propionate Propionate 50MCG 50MCG Reclast 5 Reclast 5 No MG/100ML MG/100ML amLODIPine amLODIPine No 1{table Besylate Besylate t} 2.5 MG 2.5 MG Fluticasone Fluticasone No Propionate Propionate 50 MCG/ACT 50 MCG/ACT Aspirin 325 Aspirin 325 No 1{table QD MG MG t} amLODIPine amLODIPine No Besylate Besylate 2.5 MG 2.5 MG Flonase 50 Flonase 50 No 1{spray QD MCG/DOSE MCG/DOSE _in_eac h_nostr il} Premarin Premarin No 1{table 0.3 MG 0.3 MG t} Albuterol Albuterol No 2{puffs Sulfate HFA Sulfate HFA } 108 (90 108 (90 Base) Base) MCG/ACT MCG/ACT PriLOSEC 20 PriLOSEC 20 No 1{capsu QD MG MG le} Fluticasone Fluticasone No Fluticason Propionate Propionate e 50MCG 50MCG Propionate 50MCG amLODIPine amLODIPine No 1{table amLODIPine Besylate Besylate t} Besylate 2.5 MG 2.5 MG 2.5 MG Premarin Premarin No Premarin 0.3 MG 0.3 MG 0.3 MG amLODIPine amLODIPine No amLODIPine Besylate Besylate Besylate 2.5 MG 2.5 MG 2.5 MG Fluticasone Fluticasone No Fluticason Propionate Propionate e 50 MCG/ACT 50 MCG/ACT Propionate 50 MCG/ACT PriLOSEC 20 PriLOSEC 20 No 1{capsu QD PriLOSEC MG MG le} 20 MG Aspirin 325 Aspirin 325 No 1{table QD Aspirin MG MG t} 325 MG Flonase 50 Flonase 50 No 1{spray QD Flonase 50 MCG/DOSE MCG/DOSE _in_eac MCG/DOSE h_nostr il} Albuterol Albuterol No 2{puffs Albuterol Sulfate HFA Sulfate HFA } Sulfate 108 (90 108 (90 HFA 108 Base) Base) (90 Base) MCG/ACT MCG/ACT MCG/ACT Premarin Premarin No 1{table Premarin 0.3 MG 0.3 MG t} 0.3 MG PriLOSEC 20 PriLOSEC 20 No 1{capsu QD PriLOSEC MG MG le} 20 MG amLODIPine amLODIPine No amLODIPine Besylate Besylate Besylate 2.5 MG 2.5 MG 2.5 MG Flonase 50 Flonase 50 No 1{spray QD Flonase 50 MCG/DOSE MCG/DOSE _in_eac MCG/DOSE h_nostr il} Premarin Premarin No Premarin 0.3 MG 0.3 MG 0.3 MG Fluticasone Fluticasone No Fluticason Propionate Propionate e 50MCG 50MCG Propionate 50MCG amLODIPine amLODIPine No 1{table amLODIPine Besylate Besylate t} Besylate 2.5 MG 2.5 MG 2.5 MG Premarin Premarin No 1{table Premarin 0.3 MG 0.3 MG t} 0.3 MG Prolia 60 Prolia 60 No Prolia 60 MG/ML MG/ML MG/ML Albuterol Albuterol No 2{puffs Albuterol Sulfate HFA Sulfate HFA } Sulfate 108 (90 108 (90 HFA 108 Base) Base) (90 Base) MCG/ACT MCG/ACT MCG/ACT Aspirin 81 Aspirin 81 No 2{table QD Aspirin 81 MG MG t} MG Premarin Premarin No 1{table Premarin 0.3 MG 0.3 MG t} 0.3 MG Flonase 50 Flonase 50 No 1{spray QD Flonase 50 MCG/DOSE MCG/DOSE _in_eac MCG/DOSE h_nostr il} amLODIPine amLODIPine No amLODIPine Besylate Besylate Besylate 2.5 MG 2.5 MG 2.5 MG Aspirin 81 Aspirin 81 No 2{table QD Aspirin 81 MG MG t} MG Premarin Premarin No Premarin 0.3 MG 0.3 MG 0.3 MG PriLOSEC 20 PriLOSEC 20 No 1{capsu QD PriLOSEC MG MG le} 20 MG Albuterol Albuterol No 2{puffs Albuterol Sulfate HFA Sulfate HFA } Sulfate 108 (90 108 (90 HFA 108 Base) Base) (90 Base) MCG/ACT MCG/ACT MCG/ACT Prolia 60 Prolia 60 No Prolia 60 MG/ML MG/ML MG/ML Fluticasone Fluticasone No Fluticason Propionate Propionate e 50MCG 50MCG Propionate 50MCG amLODIPine amLODIPine No 1{table amLODIPine Besylate Besylate t} Besylate 2.5 MG 2.5 MG 2.5 MG Fish Oil Fish Oil No Fish Oil Premarin Premarin No Premarin 0.3 MG 0.3 MG 0.3 MG Aspirin 81 Aspirin 81 No 2{table QD Aspirin 81 MG MG t} MG Prolia 60 Prolia 60 No Prolia 60 MG/ML MG/ML MG/ML amLODIPine amLODIPine No 1{table amLODIPine Besylate Besylate t} Besylate 2.5 MG 2.5 MG 2.5 MG Albuterol Albuterol No 2{puffs Albuterol Sulfate HFA Sulfate HFA } Sulfate 108 (90 108 (90 HFA 108 Base) Base) (90 Base) MCG/ACT MCG/ACT MCG/ACT PriLOSEC 20 PriLOSEC 20 No 1{capsu QD PriLOSEC MG MG le} 20 MG Calcium Calcium No Calcium Flaxseed Flaxseed No Flaxseed Oil Oil Oil Evening Evening No Evening [place] Oil Oil Oil Fluticasone Fluticasone No Fluticason Propionate Propionate e 50 MCG/ACT 50 MCG/ACT Propionate 50 MCG/ACT amLODIPine amLODIPine No amLODIPine Besylate Besylate Besylate 2.5 MG 2.5 MG 2.5 MG Evening Evening No Evening [place] Oil Oil Oil Albuterol Albuterol No 2{puffs Albuterol Sulfate HFA Sulfate HFA } Sulfate 108 (90 108 (90 HFA 108 Base) Base) (90 Base) MCG/ACT MCG/ACT MCG/ACT Calcium Calcium No Calcium Fish Oil Fish Oil No Fish Oil Flaxseed Flaxseed No Flaxseed Oil Oil Oil PriLOSEC 20 PriLOSEC 20 No 1{capsu QD PriLOSEC MG MG le} 20 MG Aspirin 81 Aspirin 81 No 2{table QD Aspirin 81 MG MG t} MG Fluticasone Fluticasone No Fluticason Propionate Propionate e 50 MCG/ACT 50 MCG/ACT Propionate 50 MCG/ACT Prolia 60 Prolia 60 No Prolia 60 MG/ML MG/ML MG/ML Premarin Premarin No Premarin 0.3 MG 0.3 MG 0.3 MG Fish Oil Fish Oil No Fish Oil Premarin Premarin No Premarin 0.3 MG 0.3 MG 0.3 MG amLODIPine amLODIPine No amLODIPine Besylate Besylate Besylate 2.5 MG 2.5 MG 2.5 MG Fluticasone Fluticasone No Fluticason Propionate Propionate e 50 MCG/ACT 50 MCG/ACT Propionate 50 MCG/ACT Calcium Calcium No Calcium Albuterol Albuterol No 2{puffs Albuterol Sulfate HFA Sulfate HFA } Sulfate 108 (90 108 (90 HFA 108 Base) Base) (90 Base) MCG/ACT MCG/ACT MCG/ACT PriLOSEC 20 PriLOSEC 20 No 1{capsu QD PriLOSEC MG MG le} 20 MG Prolia 60 Prolia 60 No Prolia 60 MG/ML MG/ML MG/ML Flaxseed Flaxseed No Flaxseed Oil Oil Oil Aspirin 81 Aspirin 81 No 2{table QD Aspirin 81 MG MG t} MG Evening Evening No Evening [place] Oil Oil Oil Fish Oil Fish Oil No Fish Oil Premarin Premarin No Premarin 0.3 MG 0.3 MG 0.3 MG amLODIPine amLODIPine No amLODIPine Besylate Besylate Besylate 2.5 MG 2.5 MG 2.5 MG Fluticasone Fluticasone No Fluticason Propionate Propionate e 50 MCG/ACT 50 MCG/ACT Propionate 50 MCG/ACT Calcium Calcium No Calcium Albuterol Albuterol No 2{puffs Albuterol Sulfate HFA Sulfate HFA } Sulfate 108 (90 108 (90 HFA 108 Base) Base) (90 Base) MCG/ACT MCG/ACT MCG/ACT PriLOSEC 20 PriLOSEC 20 No 1{capsu QD PriLOSEC MG MG le} 20 MG Prolia 60 Prolia 60 No Prolia 60 MG/ML MG/ML MG/ML Flaxseed Flaxseed No Flaxseed Oil Oil Oil Aspirin 81 Aspirin 81 No 2{table QD Aspirin 81 MG MG t} MG Evening Evening No Evening [place] Oil Oil Oil Fish Oil Fish Oil No Fish Oil PriLOSEC 20 PriLOSEC 20 No 1{capsu QD PriLOSEC MG MG le} 20 MG amLODIPine amLODIPine No amLODIPine Besylate Besylate Besylate 2.5 MG 2.5 MG 2.5 MG Fluticasone Fluticasone No Fluticason Propionate Propionate e 50 MCG/ACT 50 MCG/ACT Propionate 50 MCG/ACT Calcium Calcium No Calcium Albuterol Albuterol No 2{puffs Albuterol Sulfate HFA Sulfate HFA } Sulfate 108 (90 108 (90 HFA 108 Base) Base) (90 Base) MCG/ACT MCG/ACT MCG/ACT Premarin Premarin No 1{table QD Premarin 0.3 MG 0.3 MG t} 0.3 MG Prolia 60 Prolia 60 No Prolia 60 MG/ML MG/ML MG/ML Flaxseed Flaxseed No Flaxseed Oil Oil Oil Aspirin 81 Aspirin 81 No 2{table QD Aspirin 81 MG MG t} MG Evening Evening No Evening [place] Oil Oil Oil Reclast 5 Reclast 5 No Reclast 5 MG/100ML MG/100ML MG/100ML PriLOSEC 20 PriLOSEC 20 No 1{capsu QD PriLOSEC MG MG le} 20 MG Premarin Premarin No 1{table Premarin 0.3 MG 0.3 MG t} 0.3 MG Flonase 50 Flonase 50 No 1{spray QD Flonase 50 MCG/DOSE MCG/DOSE _in_eac MCG/DOSE h_nostr il} Aspirin 325 Aspirin 325 No 1{table QD Aspirin MG MG t} 325 MG Fluticasone Fluticasone No Fluticason Propionate Propionate e 50 MCG/ACT 50 MCG/ACT Propionate 50 MCG/ACT Premarin Premarin No Premarin 0.3 MG 0.3 MG 0.3 MG Fluticasone Fluticasone No Fluticason Propionate Propionate e 50MCG 50MCG Propionate 50MCG amLODIPine amLODIPine No 1{table amLODIPine Besylate Besylate t} Besylate 2.5 MG 2.5 MG 2.5 MG Premarin Premarin No 1{table Premarin 0.3 MG 0.3 MG t} 0.3 MG Aspirin 325 Aspirin 325 No 1{table QD Aspirin MG MG t} 325 MG Fluticasone Fluticasone No Fluticason Propionate Propionate e 50 MCG/ACT 50 MCG/ACT Propionate 50 MCG/ACT Flonase 50 Flonase 50 No 1{spray QD Flonase 50 MCG/DOSE MCG/DOSE _in_eac MCG/DOSE h_nostr il} PriLOSEC 20 PriLOSEC 20 No 1{capsu QD PriLOSEC MG MG le} 20 MG Fluticasone Fluticasone No Fluticason Propionate Propionate e 50MCG 50MCG Propionate 50MCG amLODIPine amLODIPine No 1{table amLODIPine Besylate Besylate t} Besylate 2.5 MG 2.5 MG 2.5 MG Reclast 5 Reclast 5 No Reclast 5 MG/100ML MG/100ML MG/100ML Premarin Premarin No Premarin 0.3 MG 0.3 MG 0.3 MG Premarin Premarin No 0.3 MG 0.3 MG Vital Signs Vital Name Observation Time Observation Value Comments Source height 2022-01-25 10:30:00 63.00 [in_i] Common [facility] weight 2022-01-25 10:30:00 111.8 [lb_av] [facility] temperature 2022-01-25 10:30:00 97.7 [degF] [facility] bmi 2022-01-25 10:30:00 19.80 kg/m2 [facility] oximetry 2022-01-25 10:30:00 95 % [facility] respiratory rate 2022-01-25 10:30:00 16 /min Comm on [facility] blood pressure 2022-01-25 10:30:00 130 mm[Hg] [facility] - systolic [facility] blood pressure 2022-01-25 10:30:00 82 mm[Hg] [facility] - diastolic [facility] height 2021-12-14 08:40:00 63.00 [in_i] [facility] weight 2021-12-14 08:40:00 107.2 [lb_av] [facility] temperature 2021-12-14 08:40:00 98.0 [degF] [facility] bmi 2021-12-14 08:40:00 18.99 kg/m2 [facility] oximetry 2021-12-14 08:40:00 97 % [facility] blood pressure 2021-12-14 08:40:00 138 mm[Hg] Common [facility] - systolic [facility] blood pressure 2021-12-14 08:40:00 72 mm[Hg] [facility] - diastolic [facility] height 2021-09-11 08:40:00 63.00 [in_i] Common S pirit - [facility] weight 2021-09-11 08:40:00 111.0 [lb_av] Common [facility] temperature 2021-09-11 08:40:00 98.0 [degF] Common S pirit - [facility] bmi 2021-09-11 08:40:00 19.66 kg/m2 Common S pirit [facility] oximetry 2021-09-11 08:40:00 97 % Common S pirit - [facility] respiratory rate 2021-09-11 08:40:00 16 /min Comm on [facility] blood pressure 2021-09-11 08:40:00 131 mm[Hg] Common [facility] - systolic [facility] blood pressure 2021-09-11 08:40:00 65 mm[Hg] Common [facility] - diastolic [facility] height 2021-06-12 08:00:00 63.00 [in_i] Common S pirit [facility] weight 2021-06-12 08:00:00 115.2 [lb_av] [facility] temperature 2021-06-12 08:00:00 97.5 [degF] Common S pirit [facility] bmi 2021-06-12 08:00:00 20.4 kg/m2 Common S pirit - [facility] oximetry 2021-06-12 08:00:00 96 % Common S pirit [facility] respiratory rate 2021-06-12 08:00:00 16 /min Comm on [facility] blood pressure 2021-06-12 08:00:00 135 mm[Hg] Common [facility] - systolic [facility] blood pressure 2021-06-12 08:00:00 62 mm[Hg] Common [facility] - diastolic [facility] height 2020-09-29 08:40:00 63.00 [in_i] Common S pirit [facility] weight 2020-09-29 08:40:00 117 [lb_av] Common [facility] temperature 2020-09-29 08:40:00 97.2 [degF] [facility] bmi 2020-09-29 08:40:00 20.72 kg/m2 [facility] oximetry 2020-09-29 08:40:00 96 % [facility] respiratory rate 2020-09-29 08:40:00 16 /min Comm on [facility] blood pressure 2020-09-29 08:40:00 126 mm[Hg] Common [facility] systolic [facility] blood pressure 2020-09-29 08:40:00 58 mm[Hg] Common [facility] diastolic [facility] Procedures This patient has no known procedures. Encounters Start End Encounter Admission Attending Care Care Encounter Source Date/Time Date/Time Type Type Clinicians Facility Department ID 2022-02-26 Outpatient Salomon, STLMLC STLMLC [id number] Common 10:23:[id number] [facility] 2021-12-14 Outpatient Mitchell, Na STLMLC STLMLC [id number] Common 08:24:01 [facility] 2021-12-13 Outpatient Mitchell, Na STLMLC STLMLC [id number] Common 09:25:00 [facility] 2021-12-12 Outpatient Mitchell, Na STLMLC STLMLC [id number] 2 Common 09:52:00 [facility] 2021-09-07 Outpatient Mitchell, Na STLMLC STLMLC [id number] Common 08:07:05 [facility] 2021-03-21 Outpatient Mitchell, Na STLMLC STLMLC [id number] 2 Common 14:32:31 [facility] 2021-03-21 Outpatient Mitchell, Na STLMLC STLMLC [id number] 2 Common 14:31:40 [facility] 2021-03-21 Outpatient Mitchell, Na STLMLC STLMLC [id number] 2 Common 13:35:[id number] [facility] 2021-03-21 Outpatient Mitchell, Na STLMLC STLMLC [id number] 2 Common 13:35:[id number] [facility] 2021-03-21 Outpatient Mitchell, Na STLMLC STLMLC [id number] Common 13:34:[id number] [facility] 2021-03-21 Outpatient Mitchell, Na STLMLC STLMLC [id number] 2 Common 12:36:[id number] [facility] 2021-03-21 Outpatient Mitchell, Na STLMLC STLMLC [id number] 2 Common 12:36:[id number] [facility] 2021-03-21 Outpatient Mitchell, Na STLMLC STLMLC [id number] 2 Common 12:35:[id number] [facility] 2021-03-21 Outpatient Mitchell, Na STLMLC STLMLC [id number] 2 Common 12:19:[id number] [facility] 2021-03-21 Outpatient Mitchell, Na STLMLC STLMLC [id number] 2 Common 12:09:[id number] [facility] 2021-03-21 Outpatient Mitchell, Na STLMLC STLMLC [id number] 2 Common 12:02:[id number] [facility] 2021-03-21 Outpatient Mitchell, Na STLMLC STLMLC [id number] 2 Common 12:01:[id number] [facility] 2021-03-21 Outpatient Mitchell, Na STLMLC STLMLC [id number] 2 Common 11:17:[id number] [facility] 2021-03-21 Outpatient Mitchell, Na STLMLC STLMLC [id number] 2 Common 11:09:[id number] [facility] 2021-03-21 Outpatient Mitchell, Na STLMLC STLMLC [id number] 2 Common 11:09:[id number] [facility] 2022-03-15 2022-03-15 (TEL) STLMLC STLMLC [id number] Co mmon 00:00:00 00:00:00 [facility] 2022-02-06 2022-02-06 (TEL) STLMLC STLMLC [id number] Co mmon 00:00:00 00:00:00 [facility] 2022-01-25 2022-01-25 (TEL) STLMLC STLMLC [id number] Co mmon 00:00:00 00:00:00 [facility] 2022-01-25 2022-01-25 OFFICE STLMLC STLMLC [id number] Co mmon 00:00:00 00:00:00 VISIT EST Spir it PT LEVEL 3 [facility] 2021-12-14 2021-12-14 OFFICE STLMLC STLMLC [id number] Co mmon 00:00:00 00:00:00 VISIT EST Spir it PT LEVEL 3 [facility] 2021-12-10 2021-12-10 (TEL) STLMLC STLMLC [id number] Co mmon 00:00:00 00:00:00 [facility] 2021-09-11 2021-09-11 OFFICE STLMLC STLMLC [id number] Co mmon 00:00:00 00:00:00 VISIT [facility] ESTAB PT - CHI LEVEL 4 [facility] 2021-06-12 2021-06-12 OFFICE STLMLC STLMLC [id number] Co mmon 00:00:00 00:00:00 VISIT [facility] ESTAB PT - CHI LEVEL 4 [facility] 2021-03-05 2021-03-05 OL DIG E/M STLMLC STLMLC [id number] Common 00:00:00 00:00:00 SVC 21+ [facility] MIN [facility] 2020-09-29 2020-09-29 OFFICE STLMLC STLMLC [id number] Co mmon 00:00:00 00:00:00 VISIT EST Spir it PT LEVEL 3 [facility] 2020-09-07 2020-09-07 (TEL) STLMLC STLMLC [id number] Co mmon 00:00:00 00:00:00 [facility] 2020-08-30 2020-08-30 Outpatient STLMLC STLMLC [id number] Common 00:00:00 00:00:00 [facility] 2020-04-28 2020-04-28 Outpatient STLMLC STLMLC [id number] Common 00:00:00 00:00:00 [facility] 2020-01-28 2020-01-28 Outpatient STLMLC STLMLC [id number] Common 00:00:00 00:00:00 [facility] 2019-12-30 2019-12-30 Outpatient STLMLC STLMLC [id number] Common 00:00:00 00:00:00 [facility] 2019-10-31 2019-10-31 [facility] [id number] Common 10:37:00 10:37:[address] [facility] 2019-08-19 2019-08-19 [facility] [id number] Common 08:00:00 08:00:[address] [facility] 2019-07-28 2019-07-28 [facility] [id number] Common 14:02:00 14:02:[address] [facility] 2019-04-20 2019-04-20 [facility] [id number] Common 08:00:00 08:00:[address] [facility] 2018-12-22 2018-12-22 [facility] [id number] Common 13:20:00 13:20:[address] [facility] 2018-09-07 2018-09-07 [facility] [id number] Common 11:42:00 11:42:[address] [facility] 2018-06-04 2018-06-04 [facility] [id number] Common 08:20:00 08:20:[address] [facility] 2018-02-02 2018-02-02 [facility] [id number] Common 08:15:00 08:15:[address] [facility] 2017-10-17 2017-10-17 [facility] [id number] Common 08:05:00 08:05:[address] [facility] 2017-10-04 2017-10-04 [facility] [id number] Common 00:21:00 00:21:[address] [facility] 2017-10-02 2017-10-02 [facility] [id number] Common 08:15:00 08:15:[address] [facility] Results Test Description Test Time Test Comments Results Result Comments Source C Spine Ap/Lat C Spine Ap/Lat Shoulder Right 2 View Shoulder Right 2 View
--- NOTE | 2022-09-09 16:43 | ER ---
Nurse's Notes [facility] Name: Bridget Zaidi Age: 81 yrs Sex: Female : 1940 Arrival Date: 09/09/2022 Time: 11:16 Bed 16 Private MD: Diagnosis: Other open wound of other specified part of neck, initial encounter-SP CERVICAL POSTERIOR FUSION 07/31/22 DR LINCOLN;Cellulitis and acute lymphangitis of face and neck;Elevated white blood cell count Presentation: 09/09 11:40 Chief complaint: Patient states: cervical spine C7 fusion and decompression done July eh3 7, wound is open and draining purulent fluid 2 days ago. Coronavirus screen: Vaccine status: Patient reports receiving the 2nd dose of the covid vaccine. Ebola Screen: No symptoms or risks identified at this time. Initial Sepsis Screen: Does the patient meet any 2 criteria? HR > 90 bpm. No. Patient's initial sepsis screen is negative. Does the patient have a suspected source of infection? Yes: Skin breakdown/wound. Risk Assessment: Do you want to hurt yourself or someone else? Patient reports no desire to harm self or others. Onset of symptoms was September 09, 2022. 11:40 Method Of Arrival: Ambulatory 3 11:40 Acuity: ETHAN 3 eh3 Triage Assessment: 11:48 General: Appears in no apparent distress. uncomfortable, Behavior is calm, cooperative, eh3 appropriate for age. Pain: Complains of pain in neck. Neuro: Level of Consciousness is awake, alert, obeys commands, Oriented to person, place, time, situation. Cardiovascular: Capillary refill < 3 seconds Patient's skin is warm and dry. Respiratory: Airway is patent Respiratory effort is even, unlabored, Respiratory pattern is regular, symmetrical. Derm: Wound noted neck. Historical: - Allergies: 11:48 Sulfa (Sulfonamide Antibiotics); eh3 - PMHx: 11:48 COPD; Hypertensive disorder; eh3 - PSHx: 11:48 hysterectomy; Tonsillectomy; Cervical fusion; eh3 - Immunization history:: Adult Immunizations up to date. - Social history:: Smoking status: Patient denies any tobacco usage or history of. Patient/guardian denies using alcohol. Screenin:50 [facility] ED Fall Risk Assessment (Adult) History of falling in the last 3 months, ll1 including since admission No falls in past 3 months (0 pts) Confusion or Disorientation No (0 pts) Intoxicated or Sedated No (0 pts) Impaired Gait Yes (1 pt) Mobility Assist Device Used Yes (1 pt) Altered Elimination No (0 pt) Score/Fall Risk Level 0 - 2 = Low Risk Oriented to surroundings, Maintained a safe environment. Abuse screen: Denies threats or abuse. Denies injuries from another. Nutritional screening: No deficits noted. Tuberculosis screening: No symptoms or risk factors identified. Assessment: 13:36 Reassessment: Patient appears in no apparent distress at this time. Patient and/or db family updated on plan of care and expected duration. Pain level reassessed. Patient is alert, oriented x 3, equal unlabored respirations, skin warm/dry/pink. wound to back of neck post neck surgery. Noted dime size hole in middle of patient C spine. 14:43 Reassessment: PATIENT AMBULATORY TO RESTROOM. db 15:17 Reassessment: No changes from previously documented assessment. Patient and/or family ll1 updated on plan of care and expected duration. Pain level reassessed. 15:49 Reassessment: report given to [facility]AGNER Bobby Neuro surgery ER [facility]. General:. ll1 16:00 Reassessment: Patient appears in no apparent distress at this time. Patient and/or db family updated on plan of care and expected duration. Pain level reassessed. Patient is alert, oriented x 3, equal unlabored respirations, skin warm/dry/pink. PATIENT AMBULATORY TO RESTROOM. 17:00 Reassessment: Patient appears in no apparent distress at this time. Patient and/or db family updated on plan of care and expected duration. Pain level reassessed. Patient is alert, oriented x 3, equal unlabored respirations, skin warm/dry/pink. [facility] HERE FOR PATIENT TRANSPORT TO RECEIVING FACILITY. Vital Signs: 11:40 BP 128 / 74; Resp 18; Temp 98.4(TE); Weight 49.9 kg; Height 5 ft. 3 in. ; eh3 13:28 BP 121 / 73; Pulse 76; Resp 16 S; Pulse Ox 98% ; ll1 14:00 BP 134 / 69; Pulse 75; Resp 16; Pulse Ox 98% on R/A; ll1 15:00 BP 134 / 72 (/pedi); Pulse 78; Resp 16; Pulse Ox 98% on R/A; ll1 16:30 BP 135 / 68; Pulse 83; Resp 16; Pulse Ox 95% on R/A; db 11:40 Body Mass Index 19.49 (49.90 kg, 160.02 cm) [facility] ED Course: 11:23 Patient arrived in ED. im 11:27 David Rodriguez MD is Attending Physician. [facility] 11:48 Triage completed. [facility] 11:48 Arm band placed on. [facility] 12:23 Sarah Kevin, WAGNER is Primary Nurse. db 12:55 Initial lab(s) drawn, by me, sent to lab. Missed attempt(s): 22 gauge in left forearm. db Bleeding controlled, band aid applied, catheter tip intact. 13:13 Inserted saline lock: 22 gauge in right forearm, using aseptic technique. em1 13:53 Lab(s) recollected, by me, sent to lab. em1 14:43 Patient has correct armband on for positive identification. Bed in low position. Call db light in reach. Side rails up X 1. Provided Education on:. 14:53 initiated transfer to [facility]. bd 17:01 No provider procedures requiring assistance completed. Patient transferred, IV remains db in place. Administered Medications: 13:30 Drug: NS 0.9% IV 500 ml Route: IV; Rate: bolus; Site: left forearm; db 15:00 Follow up: Response: No adverse reaction; IV Status: Completed infusion; IV Intake: db 500ml 14:15 Drug: ceFAZolin IVPB 1 grams Route: IVPB; Site: left forearm; db 15:15 Follow up: Response: No adverse reaction; IV Status: Completed infusion; IV Intake: db 100ml Medication: 17:02 VIS not applicable for this client. db Intake: 15:00 IV: 500ml; Total: 500ml. db 15:15 IV: 100ml; Total: 600ml. db Outcome: 13:12 ER care complete, transfer ordered by . [facility] 17:01 Transferred by ground EMS to [facility], Transfer form completed. db 17:01 Condition: stable 17:01 Instructed on the need for transfer. 17:02 Patient left the ED. db Signatures: Marti Suazo bd David Rodriguez MD MD cha Martinez, Eric em1 Demarco Delacruz RN RN ll1 Lacy Tran, RN RN eh3 Sarah Kevin, RN RN db Geno Frias
--- NOTE | 2022-09-09 16:43 | EDPHYS ---
Physician Documentation [facility] Name: Bridget Zaidi Age: 81 yrs Sex: Female : 1940 Arrival Date: 09/09/2022 Time: 11:16 Bed 16 Private MD: David Ellington HPI: 09/09 12:00 This 81 yrs old Female presents to ER via Ambulatory with complaints of Wound brayan Infection - on spinal surgery site sent by a Dr. Espinosa. Historical: - Allergies: 11:48 Sulfa (Sulfonamide Antibiotics); eh3 - PMHx: 11:48 COPD; Hypertensive disorder; eh3 - PSHx: 11:48 hysterectomy; Tonsillectomy; Cervical fusion; eh3 - Immunization history:: Adult Immunizations up to date. - Social history:: Smoking status: Patient denies any tobacco usage or history of. Patient/guardian denies using alcohol. ROS: 12:03 Constitutional: Negative for fever, chills, and weight loss, Eyes: Negative for injury, brayan pain, redness, and discharge, ENT: Negative for injury, pain, and discharge, Neck: Negative for injury, pain, and swelling, Cardiovascular: Negative for chest pain, palpitations, and edema, Respiratory: Negative for shortness of breath, cough, wheezing, and pleuritic chest pain, Abdomen/GI: Negative for abdominal pain, nausea, vomiting, diarrhea, and constipation, Back: Negative for injury and pain, : Negative for injury, bleeding, discharge, and swelling, MS/Extremity: Negative for injury and deformity, Neuro: Negative for headache, weakness, numbness, tingling, and seizure, Psych: Negative for depression, anxiety, suicide ideation, homicidal ideation, and hallucinations, Allergy/Immunology: Negative for hives, rash, and allergies, Endocrine: Negative for neck swelling, polydipsia, polyuria, polyphagia, and marked weight changes, Hematologic/Lymphatic: Negative for swollen nodes, abnormal bleeding, and unusual bruising. 12:03 Skin: Positive for cellulitis, of the thoracic area, wound break down, no dc. Exam: 12:03 Constitutional: This is a well developed, well nourished patient who is awake, alert, brayan and in no acute distress. Head/Face: Normocephalic, atraumatic. Eyes: Pupils equal round and reactive to light, extra-ocular motions intact. Lids and lashes normal. Conjunctiva and sclera are non-icteric and not injected. Cornea within normal limits. Periorbital areas with no swelling, redness, or edema. Neck: Trachea midline, no thyromegaly or masses palpated, and no cervical lymphadenopathy. Supple, full range of motion without nuchal rigidity, or vertebral point tenderness. No Meningismus. Chest/axilla: Normal chest wall appearance and motion. Nontender with no deformity. No lesions are appreciated. Cardiovascular: Regular rate and rhythm with a normal S1 and S2. No gallops, murmurs, or rubs. Normal PMI, no JVD. No pulse deficits. Respiratory: Lungs have equal breath sounds bilaterally, clear to auscultation and percussion. No rales, rhonchi or wheezes noted. No increased work of breathing, no retractions or nasal flaring. Abdomen/GI: Soft, non-tender, with normal bowel sounds. No distension or tympany. No guarding or rebound. No evidence of tenderness throughout. Back: No spinal tenderness. No costovertebral tenderness. Full range of motion. Female : Normal external genitalia. Skin: Warm, dry with normal turgor. Normal color with no rashes, no lesions, and no evidence of cellulitis. MS/ Extremity: Pulses equal, no cyanosis. Neurovascular intact. Full, normal range of motion. Neuro: Awake and alert, GCS 15, oriented to person, place, time, and situation. Cranial nerves II-XII grossly intact. Motor strength 5/5 in all extremities. Sensory grossly intact. Cerebellar exam normal. Normal gait. Psych: Awake, alert, with orientation to person, place and time. Behavior, mood, and affect are within normal limits. 12:03 Neck: External neck: cellulitis, swelling, that is moderate, of the left mid cervical area and right mid cervical area, open wound, skin open , break down, bone exoposed. Vital Signs: 11:40 BP 128 / 74; Resp 18; Temp 98.4(TE); Weight 49.9 kg; Height 5 ft. 3 in. ; eh3 13:28 BP 121 / 73; Pulse 76; Resp 16 S; Pulse Ox 98% ; ll1 14:00 BP 134 / 69; Pulse 75; Resp 16; Pulse Ox 98% on R/A; ll1 15:00 BP 134 / 72 (/pedi); Pulse 78; Resp 16; Pulse Ox 98% on R/A; ll1 16:30 BP 135 / 68; Pulse 83; Resp 16; Pulse Ox 95% on R/A; db 11:40 Body Mass Index 19.49 (49.90 kg, 160.02 cm) eh3 MDM: 11:[address] [facility] 12:05 Differential diagnosis: abscess, cellulitis. Differential Diagnosis sepsis. Data [facility] reviewed: vital signs, nurses notes, lab test result(s). Consideration of Admission/Observation Escalation of care including admission/observation considered. Management of patient was discussed with the following: Economic Analysis Director: dr espinosa is the plan. I considered the following discharge prescriptions or medication management in the emergency department Medications were administered in the Emergency Department. See MAR. Test considered but Not performed: CT: no ct c spine. Care significantly affected by the following chronic conditions: Hypertension, Chronic Obstructive Pulmonary Disease. 09/09 11:59 Order name: CBC with Diff [facility] 09/09 11:59 Order name: Comprehensive Metabolic Panel [facility] 09/09 11:59 Order name: CRP [facility] 09/09 12:00 Order name: Wound Culture [facility] 09/09 11:59 Order name: Wound dressing; Complete Time: 15:[address] [facility] 09/09 13:29 Order name: Misc. Order: recollect green top; Complete Time: 13:53 kb Administered Medications: 13:30 Drug: NS 0.9% IV 500 ml Route: IV; Rate: bolus; Site: left forearm; db 15:00 Follow up: Response: No adverse reaction; IV Status: Completed infusion; IV Intake: db 500ml 14:15 Drug: ceFAZolin IVPB 1 grams Route: IVPB; Site: left forearm; db 15:15 Follow up: Response: No adverse reaction; IV Status: Completed infusion; IV Intake: db 100ml Disposition Summary: 09/09/22 13:12 Transfer Ordered Transfer Location: [facility] Reason: Higher level of care brayan Condition: Stable brayan Problem: new brayan Symptoms: have worsened brayan Accepting Physician: TO ER, NEUROSURGERY(09/09/22 17:02) db Diagnosis - Other open wound of other specified part of neck, initial encounter - SP CERVICAL brayan POSTERIOR FUSION 07/31/22 DR ESPINOSA - Cellulitis and acute lymphangitis of face and neck brayan - Elevated white blood cell count brayan Forms: - Medication Reconciliation Form brayan - SBAR form brayan Signatures: Dispatcher [employer] EDAubrie Hernandez, TATIANA-Tan SIMPSON-David Ya MD MD cha Hall, Erin, RN RN eh3 Sarah Kevin RN RN db Corrections: (The following items were deleted from the chart) 14: 13:12 to [facility], ER brayan brayan 14:43 14:25 to [facility] brayan 17:00 14:43 TO ER, NEUROSURGERY brayan brayan 17:02 17:00 TO ER, NEUROSURGERY brayan db
[2022-09-09 17:15] LABS: Lymphocytes % 12.3 % (15.3-44.8); MCV 85.7 fL (80-100); MPV 8.7 fL (7.6-11.3); RBC Red Blood Cell Count 4.55 M/uL (3.86-4.86)
[2022-09-09 17:24] LABS: Blood Morphology Comment NOT SEEN (NOT SEEN); Platelet Estimate ADEQ; Platelets, Giant PRESENT; White Blood Cell Scan OK (OK)
[2022-09-09 19:12] LABS: Albumin 2.9 g/dL (3.4-5.0); Bilirubin Total 0.3 mg/dL (0.2-1.0); Potassium 3.6 mEq/L (3.5-5.1)
[2022-09-09 20:28] VITALS: TEMP 98.4
[2022-09-09 20:33] VITALS: BP 135/68; O2SAT 95
== END 2022-09-09 17:02 | disposition short-term general hospital (02) ==
LOC: ER 11:16
DX: T81.49XA Infection following a procedure, other surgical site, initial encounter (principal); L03.221 Cellulitis of neck; L03.211 Cellulitis of face; J44.9 Chronic obstructive pulmonary disease, unspecified; I10 Essential (primary) hypertension; Z88.2 Allergy status to sulfonamides
CPT/HCPCS: 96365; 96361; 87070; 85025; 36415; 87205; 80053; 86140; 99285; J7040; J0690; 87077; 87186